=== PATIENT | female | born 1995 ===

== ENCOUNTER 2017-02-07 12:32 | Emergency (ER) | payer OTHER, MEDICAID ==
--- NOTE | 2017-02-07 13:23 | ER NURSING DOCUMENTATION ---
Nurse's Notes [facility] Name:Sunil Krishna Age:21 yrs Sex:Female :1995 Arrival Date:02/07/2017 Time:12:32 Bed1 Private MD: Diagnosis:Pharyngitis - Tonsillitis Presentation: 02/07 12:43 Acuity: AMOR 4 st 12:45 Presenting complaint: Patient states: pt states that for the last few days she has had st a sore throat joint pain and felt generally weak. pt also states she has noted white patches on her throat. Transition of care: Home. 12:45 Method Of Arrival: Private Vehicle st Triage Assessment: 12:47 General: Appears in no apparent distress, Behavior is cooperative. Pain: Pain currently st is 7 out of 10 on a pain scale. Pain began 2-3 days ago. Pain: Complains of pain in throat and body aches. EENT: Throat is reddened has patchy exudate has enlarged tonsils bilaterally. Cardiovascular: No deficits noted. Respiratory: No deficits noted. GI: No deficits noted. Historical: - Allergies: No known drug Allergies; - Home Meds: 1. azithromycin Oral - PMHx: achnie; - PSHx: None; - Tetanus: unknown will f/u with PCP. - Ebola Screening: : Patient denies exposure to infectious person. Patient denies travel to an Ebola-affected area in the 21 days before illness onset. . - Immunization history: Pneumococcal vaccine status is unknown. - Social history: Smoking status: Patient states was never smoker of tobacco. Patient uses marijuana Patient/guardian denies using alcohol. Screenin:50 Infectious Disease Risk None. Abuse screen: Denies threats or abuse. Denies injuries st from another. pt states she feels safe at home. Nutritional screening: No deficits noted. Assessment: 12:50 General: pt is concerned about her daughter that she is nursing. . st 13:13 General: pt states she has a new sexual partner. . st Vital Signs: 12:48 BP 131 / 88; Pulse 108; Resp 20; Temp 98.8; Pulse Ox 94% on R/A; Pain 7/10; st ED Course: 12:36 Patient arrived in ED. we 12:36 Mary Ann Trammell, RN is Primary Nurse. st 12:[address] 12:45 Strep culture sent to lab. st 12:50 Valuables Remains with patient Patient has correct armband on for positive st identification. 13:12 Martin Alvarez MD is Attending Physician. tl1 13:12 GC and CH swab. st Administered Medications: No medications were administered Outcome: 13:14 Discharge ordered by . tl1 13:22 Discharged to home ambulatory. st 13:22 Condition: stable 13:22 Discharge instructions given to patient, Instructed on discharge instructions, follow up and referral plans. medication usage. 13:22 Patient [address] the ED. st 03 11:57 Discharge F/U Call: Spoke with: patient. Overall Care on a scale of 1-10 with 10 ma being the best care, you rate our care as: Other comments: States care was fine Signatures: Mary Ann Trammell, RN Kimberlee Kidd RN RN Martin Gonzales MD MD tl1 Prince Mehdi we
--- NOTE | 2017-02-09 13:22 | ER PHYSICIAN DOCUMENTATION ---
Physician Documentation [facility] Name:Sunil Krishna Age:21 yrs Sex:Female :1995 Arrival Date:02/07/2017 Time:12:32 Bed1 Private MD: Martin Paez Disposition: 02/07 23:32 Chart complete. tl1 Disposition: 02/07/17 13:14 Discharged to Home/Self Care. Impression: Pharyngitis - Tonsillitis. - Condition is Good. - Discharge Instructions: PHARYNGITIS, Report Pending. - Medical Reconciliation form form. - Follow up: Private Physician; When: 7 - 10 days; Reason: Recheck today's complaints, Continuance of care. - Problem is new. - Symptoms are unchanged. - Notes: YOUR RAPID STREP TEST WAS NEGATIVE. THIS IS PROBABLY A VIRAL TONSILLITIS (PHARYNGITIS) TESTING FOR GC AND CHLAMYDIA ARE PENDING. CALL IN 3 DAYS IF YOU HAVE NOT HEARD FROM US TO CHECK THE RESULTS. . HPI: 12:45 This 21 yrs old Unknown Female presents to ER via Private Vehicle with complaints of tl1 Headache, General Weakness. 12:45 She is here visiting from [place]. She now c/o throat pain for about 4 days that is tl1 getting worse, associated with a generalized h/a. Denies cough or rhinorrhea. She recently has had a new (male) sexual partner with whom she has had oral sex. She is worried about a possible STI. She denies any vaginal lesions, pain or d/c. No urinary symptoms. She is concerned that she could transmit any illness to her infant daughter, whom she is still breast feeding.. Historical: - Allergies: No known drug Allergies; - Home Meds: 1. azithromycin Oral - PMHx: achnie; - PSHx: None; - Tetanus: unknown will f/u with PCP. - Ebola Screening: : Patient denies exposure to infectious person. Patient denies travel to an Ebola-affected area in the 21 days before illness onset. . - Immunization history: Pneumococcal vaccine status is unknown. - Social history: Smoking status: Patient states was never smoker of tobacco. Patient uses marijuana Patient/guardian denies using alcohol. ROS: 13:00 Neuro: Negative for altered mental status, dizziness, speech changes, syncope, visual tl1 changes, weakness. 13:00 All other systems are negative. Exam: 13:00 Constitutional: This is a well developed, well nourished patient who is awake, alert, tl1 and in no acute distress. 13:00 Head/Face: Normocephalic, atraumatic. tl1 13:00 Eyes: Exam is negative for acute changes. 13:00 ENT: External ear(s): are unremarkable, Nose: is normal, Mouth: Oral mucosa: pink and intact, moist, Gums: normal with healthy appearance, Tongue: is normal, Posterior pharynx: Tonsils: bilaterally enlarged, with erythema, with exudate, Voice: is normal. 13:00 Neck: External neck: is normal, ROM/movement: is normal, Lymph nodes: no appreciated lymphadenopathy. 13:00 Cardiovascular: Rate: normal, Rhythm: regular, Heart sounds: normal. 13:00 Respiratory: Respirations: normal, Breath sounds: are normal. 13:00 : CVA tenderness, is absent. 13:00 Neuro: Orientation: is normal, Mentation: is normal, Memory: is normal, Cranial nerves: grossly normal, Motor: moves all fours, Gait: is steady, without difficulty, appropriate for age. Vital Signs: 12:48 BP 131 / 88; Pulse 108; Resp 20; Temp 98.8; Pulse Ox 94% on R/A; Pain 7/10; st MDM: 12:37 Patient medically screened. tl1 13:00 Differential diagnosis: Sterp throat, viral pharyngitis, gonococcal or chlamydial tl1 pharyngitis. Data reviewed: vital signs, nurses notes, lab test result(s), RST negative. GC/chlamydia DNA probe pending.. Data reviewed: , and as a result, I will discharge patient. Counseling: I had a detailed discussion with the patient and/or guardian regarding: the historical points, exam findings, and any diagnostic results supporting the discharge/admit diagnosis, lab results, the need for outpatient follow up, for a recheck, with the patient's primary care provider, to return to the emergency department if symptoms worsen or persist or if there are any questions or concerns that arise at home. Special discussion: Reassured her that this is probably viral and not an STI, and that we will do what we can to rule one out.. 02/07 13:02 Order name: RAPID STREP SCRN CUL IF NEG; Complete Time: 23:15 EDMS 02/07 23:15 Interpretation: Normal: RAPID STREP SCRN CUL IF NEG NEGATIVE. tl1 Dispensed Medications: No medications were administered Signatures: Mary Ann Trammell, RN Martin Yanez MD MD tl1
[2017-02-10 12:56] LABS: CHLAMYDIA AMPLIFICATION BCH NEGATIVE (NEGATIVE); GONORRHOEAE AMPLIFICATION BCH NEGATIVE (NEGATIVE)
== END 2017-02-07 13:23 | disposition home or self-care (01) ==
LOC: ER 12:32
DX: J03.90 Acute tonsillitis, unspecified (principal)
CPT/HCPCS: 86403; 87081; 87798; 99283